=== PATIENT | female | born 1975 | race Caucasian/White ===

== ENCOUNTER → 2021-04-23 | Outpatient (CLI) | payer OTHER | LOC: KOH-I 10:09 | DX: M25.562 Pain in left knee (principal); G89.29 Other chronic pain; M17.12 Unilateral primary osteoarthritis, left knee | CPT/HCPCS: 73562 ==

== ENCOUNTER 2021-05-12 19:50 | Emergency (ER) | payer OTHER ==
[2021-05-12 20:30] LABS: HEMOGLOBIN 15.8 gm/dl (12.3-15.3); RED BLOOD COUNT 5.3 M/UL (4.00-5.10); WHITE BLOOD COUNT 7.7 K/UL (4.5-11.0)
[2021-05-12 20:43] LABS: BUN/CREATININE RATIO 18 (0-10)
== END 2021-05-12 22:23 | disposition home or self-care (01) ==
LOC: ER1 19:50
PROVIDERS: Physician Assistant
DX: M25.561 Pain in right knee (principal); R19.7 Diarrhea, unspecified; E11.9 Type 2 diabetes mellitus without complications; I10 Essential (primary) hypertension; F17.210 Nicotine dependence, cigarettes, uncomplicated
CPT/HCPCS: 73564; 80053; 83605; 83690; 83735; 85025; 85652; 86140; 99283

== ENCOUNTER → 2021-08-19 | Outpatient (CLI) | payer OTHER | LOC: EMI 08:08 | DX: R27.0 Ataxia, unspecified (principal) | CPT/HCPCS: 70551 ==